=== PATIENT | female | born 1980 | race American Indian/Alaskan Native ===

== ENCOUNTER 2018-09-19 07:59 | Day surgery (SDC) | payer MEDICAID, OTHER ==
[2018-09-15 08:51] LABS: Hematocrit 28.8 % (30.3-42.9); Hemoglobin 8.7 gm/dl (10.1-14.3); Mean Corpuscular HGB Conc 30 % (30-34); Mean Corpuscular Hemoglobin 20 pg (28-32); Mean Corpuscular Volume 64 fl (79-97); Red Blood Count 4.47 M/mm3 (3.65-5.03); Red Cell Distribution Width 27.9 % (13.2-15.2)
[2018-09-15 09:40] LABS: Anisocytosis 3+; Hypochromasia 2+; Total Cells Counted 100
[2018-09-15 09:41] LABS: Ovalocytes Few; Poikilocytosis 1+
[2018-09-15 09:59] LABS: Platelet Count 164 K/mm3 (140-440); Platelet Estimate Consistent w Auto
--- NOTE | 2018-09-18 19:32 | History and Physical Report ---
History of Present Illness Date of examination: 09/07/18 Chief complaint: Excessive and frequent menstruation with irregular cycle History of present illness: Past History : 2 Term Births: 1 Living Children: 1 Spont. 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 Surgery lsc ovarian cystectomy (B) Abnormal PAP: negative Infertility: positive Infection History HIV Risk Eval: no Hx of STD: None Active Medications (reviewed today): TRANEXAMIC ACID 650 MG ORAL TABLET (TRANEXAMIC ACID) 1300 mg(2 tabs) 3 times daily (3900 mg daily) for up to 5 days during monthly menstruation CYCLOBENZAPRINE HCL TABLET (CYCLOBENZAPRINE HCL TABS) CELEBREX CAPSULE (CELECOXIB CAPS) Current Allergies (reviewed today): TRAMADOL HCL (TRAMADOL HCL) (Critical) Past Medical History: Reviewed history from 08/02/2018 and no changes required: Anemia Knee injury (07/10/2018) Blood Transfusion (2011)(2006) Endometriosis Past Surgical History: Reviewed history from 08/02/2018 and no changes required: Cholecystectomy D&C: 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 Surgery lsc ovarian cystectomy (B) Family History Summary: Reviewed history and no changes required: 09/18/2018 Uncle - Has Family History of Lung Cancer - paternal - Entered On: 08/24/2018 Other family member - Has No Family History of Biliary Tract Cancer - Entered On : 08/24/2018 Other family member - Has No Family History of Breast Cancer - Entered On: 2017 Other family member - Has No Family History of Brain Cancer - Entered On: 2017 Other family member - Has No Family History of Colon Cancer - Entered On: 2017 Other family member - Has No Family History of Spontaneous DVT-PE - Entered On: 08/24/2018 Other family member - Has No Family History of Kidney/Urinary Tract Cancer - Entered On: 08/24/2018 Other family member - Has No Family History of Ovarvian Cancer - Entered On: Other family member - Has No Family History of Pancreatic Cancer - Entered On: Other family member - Has No Family History of Stomach Cancer - Entered On: 08/24 Other family member - Has No Family History of Small Bowel Cancer - Entered On: 08/24/2018 Other family member - Has No Family History of Uterine Cancer - Entered On: 08/24 General Comments - FH: PGF Leukemia Social History: Reviewed history from 08/02/2018 and no changes required: Patient is single Smoking History: Patient has never smoked. Risk Factors: Smoked Tobacco Use: Never smoker Smokeless Tobacco Use: Never Passive smoke exposure: no Drug use: no HIV high-risk behavior: no Alcohol use: yes Exercise: no Seatbelt use: 100 % Mammogram History: Date of Last Mammogram: 11/28/2013 PAP Smear History: Date of Last PAP Smear: 08/04/2018 Previous Tobacco Use: Signed On - 08/16/2018 Smoked Tobacco Use: Never smoker Smokeless Tobacco Use: Never Passive smoke exposure: no Drug use: no HIV high-risk behavior: no Caffeine use: 0 drinks per day Previous Alcohol Use: Signed On - 08/16/2018 Alcohol use: yes Type: occ Counseled to quit/cut down alcohol use: no Exercise: no Seatbelt use: 100 % Mammogram History: Date of Last Mammogram: 11/28/2013 PAP Smear History: Date of Last PAP Smear: 08/04/2018 Review of Systems General Denies fever, chills, sweats, anorexia, fatigue, weakness, malaise, weight loss and sleep disorder. Complains of abnormal vaginal bleeding. Denies vaginal discharge, incontinence, dysuria, hematuria, urinary frequency, amenorrhea, menorrhagia, pelvic pain, genital sores, decreased libido , painful periods, painful sex, urinary urgency, hot flashes, vaginal dryness, vaginal itching and vaginal odor. Heme Denies abnormal bruising, bleeding and enlarged lymph nodes. Physical Exam Appearance: well developed, well nourished, no acute distress Other Exams Lungs: no rales, rhonchi, or wheezes Heart: S1, S2, no murmur, rub, or gallop Abdomen: soft, non-tender, no masses Skin: no ulcers, xanthomas Extremities: normal alignment, no joint enlargement, crepitus, masses or tenderness; normal tone and strength Genitourinary Exam Vulva: normal, no lesions or discharge Urethral meatus: normal size and location, no lesions or discharge Urethra: no discharge Bladder: no cystocele Vagina: normal appearance, no discharge, lesions. No evidence of cystocele or rectocele. Cervix: normal appearance, no lesions, no discharge Uterus: normal position, midline, mobile Adnexa: no masses or tenderness Impression & Recommendations: Problem # 1: Excessive and frequent menstruation with irregular cycle (ICD- 626.6) (SEV00-T03.1) Diagnosis explained to patient . Questions answered. Discussed with patient various medical and surgical therapies common for treatment: Hormonal/medical therapy,endometrial ablation or hysterectomy. She desires fertility therefore declines hormonal therapy and definitive surgical intervention at this time. She was informed her abnormal uterine bleeding may persist or recur after this procedure. Consent reviewed and signed . Possible laparoscopy or laparotomy explained to patient. The risks and alternatives for this surgery were reviewed with the patient. She was informed of possible bleeding, infection, injury to bowel, bladder, ureters or other adjacent organs. The patient was instructed/informed the following: The normal length of hospital stay for this procedure. Nothing to eat or drink after midnight the evening prior to surgery. Clear liquids the evening prior to surgery Pre-op instruction sheets given. Wound care instructions given. Infection precautions reviewed, patient to call for any signs or symptoms of infection. The usual discomforts associated with this procedure were detailed. Proper use of pain medicines was reviewed. Patient was given ample opportunity to have all her questions answered before signing informed consent. Problem # 2: Anemia secondary to blood loss (chronic) (ICD-280.0) (DLQ64-D02.0) Medications and Allergies Allergies Allergy/AdvReac Type Severity Reaction Status Date / Time tramadol Allergy Hives Verified 09/12/18 15:10 Home Medications Medication Instructions Recorded Confirmed Last Taken Type No Known Home Medications [No 09/12/18 09/12/18 Unknown History Reported Home Medications] Active Meds: Active Medications Cefazolin Sodium (Ancef/Sterile Water 2 Gm/20 Ml) 2 gm in 20 mls @ 80 mls/hr IV PREOP NR; Protocol Exam Vital Signs Temp Pulse Resp BP 98.3 F 72 18 126/80 09/15/18 08:20 09/15/18 08:20 09/15/18 08:20 09/15/18 08:20 Results - Labs 09/15/18 08:25 Assessment and Plan - Patient Problems (1) Excessive and frequent menstruation with irregular cycle Status: Acute
[~2018-09-19 07:59] MED LIST: ANCEF/STERILE WATER 2 GM/20 ML 2 GM/20 ML SYRINGE IV NR; DEMEROL IV PRN; DILAUDID IV PRN; ZOFRAN IV PRN
[2018-09-19] MEDS ORDERED: LACTATED RINGERS 1,000 ML IV SCH ×2 (08:00)
[2018-09-19] MEDS ORDERED: VERSED IV NR (08:00)
[2018-09-19] MEDS ORDERED: SUBLIMAZE ONE (10:49)
[2018-09-19] MEDS ORDERED: DIPRIVAN 10 MG/ML IV ONE ×2 (10:49→11:31)
--- NOTE | 2018-09-19 10:57 | Anesthesia Day of Surgery ---
Anesthesia Day of Surgery - Day of Surgery Patient Examined: Yes Patient H&P Reviewed: Yes Patient is NPO: Yes
--- NOTE | 2018-09-19 10:57 | Anesthesia Consultation ---
Anesthesia Consult and Med Hx Date of service: 09/19/18 - Airway Anesthetic Teeth Evaluation: Good ROM Head & Neck: Adequate Mental/Hyoid Distance: Adequate Mallampati Class: Class II Intubation Access Assessment: Probably Good - Pulmonary Exam CTA: Yes - Cardiac Exam Cardiac Exam: RRR - Pre-Operative Health Status ASA Pre-Surgery Classification: ASA1 Proposed Anesthetic Plan: General - Central Nervous System Hx Psychiatric Problems: No - Hematic Hx Anemia: Yes - Other Systems Hx Alcohol Use: Yes (Occas) Hx Cancer: No
[2018-09-19] MEDS ORDERED: XYLOCAINE MPF 2% ONE (11:24)
[2018-09-19] MEDS ORDERED: TORADOL ONE (11:24)
[2018-09-19] MEDS ORDERED: DECADRON ONE (11:24)
[2018-09-19] MEDS ORDERED: ZOFRAN ONE (11:24)
[2018-09-19] MEDS ORDERED: DILAUDID ONE (11:32)
[2018-09-19] MEDS ORDERED: NACL 0.9% IR ONE (11:45)
--- NOTE | 2018-09-19 12:05 | Operative Report ---
Operative Report Operative Report: Date: 09/19/2018 Preoperative diagnosis: 1. Excessive and frequent menstruation with irregular cycle 2. Desires fertility 3. Anemia due to chronic blood loss 4. Body mass index 33.7 Postoperative diagnosis: 1 1. Excessive and frequent menstruation with irregular cycle 2. Desires fertility 3. Anemia due to chronic blood loss 4. Body mass index 33.7 . Procedure: 1. Cervical dilation 2. Diagnostic hysteroscopy 3. Uterine curettage Surgeon: Audra Cho MD Business Continuity Specialist: [] Anesthesiologist: Dr. Mijares Anesthesia: Gen. endotracheal anesthesia EBL: Minimal Findings: Uterus was sounded to 9 cm large amount of clots thickened endometrium was noted. No other obvious abnormalities were visualized. Distention medium: Normal saline Fluid deficit: 100 mL Procedure: After risks, benefits, complications, consequences and alternatives for this procedure were explained, and patient voiced her understanding and her desire to proceed, she is taken to the OR and placed in the supine position. General anesthesia was induced. She was placed in the dorsolithotomy position. Exam under anesthesia was unremarkable. She was then prepped and draped in usual sterile fashion. Timeout was performed. A [place] catheter was introduced into the bladder with drainage of clear yellow urine. A operative speculum was introduced was introduced into the vagina. The anterior lip of the cervix was grasped with single-tooth tenaculum and the uterus was sounded to 9 cm. The cervix was progressively dilated to allow the operative hysteroscope. The above findings were noted. Uterine curettage was then performed. The hysteroscope was introduced. No abnormalities were noted. No obvious evidence of perforations were noted. The procedure was ended. The speculum and the tenaculum were removed. Hemostasis was noted. The [place] catheter was removed. No bleeding from the tenaculum site was noted. Clear yellow urine was draining into the C[place] catheter at the end of the procedure. Patient tolerated procedure well and taken to recovery room in stable condition
--- NOTE | 2018-09-19 12:11 | Discharge Summary ---
Providers - Providers Date of discharge: 09/19/18 Attending physician: CRISTA BOLES Primary care physician: DAYSI HARVEY Hospitalization Condition: Good Procedures: Diagnostic hysteroscopy with dilation curettage Hospital course: Unremarkable Disposition: DC-01 TO HOME OR SELFCARE - Discharge Diagnoses (1) Excessive and frequent menstruation with irregular cycle Status: Acute Core Measure Documentation - Palliative Care Palliative Care/ Comfort Measures: Not Applicable - Core Measures Any of the following diagnoses?: none Exam - Constitutional Vitals: Temp Pulse Resp BP Pulse Ox 97.2 F L 85 18 121/55 100 09/19/18 12:00 09/19/18 12:05 09/19/18 12:05 09/19/18 12:05 09/19/18 12:05 General appearance: Present: no acute distress - Respiratory Respiratory effort: normal - Cardiovascular Rhythm: regular Plan Activity: other (no sex) Weight Bearing Status: Full Weight Bearing Diet: regular Special Instructions: no heavy lifting (greater than 25 pounds) Follow up with: DAYSI HARVEY MD [Primary Care Provider] - 7 Days CRISTA BOLES MD [Staff Physician] - (As scheduled)
--- NOTE | 2018-09-19 12:46 | Post Anesthesia Evaluation ---
- Post Anesthesia Evaluation Patient Participated: Yes Airway Patent: Yes Stable Respiratory Function: Yes Nausea/Vomiting: No Temp > 96.8F: Yes Pain Manageable: Yes Adequeate Hydration: Yes Anesthesia Complications: No
[2018-09-19 13:17] VITALS: BP 100/60
== END 2018-09-19 14:05 | disposition home or self-care (01) ==
LOC: OR 07:59
PROVIDERS: ATTEND Obstetrics & Gynecology
DX: N92.1 Excessive and frequent menstruation with irregular cycle (principal); D50.0 Iron deficiency anemia secondary to blood loss (chronic); R93.89 Abnormal findings on diagnostic imaging of other specified body structures; G43.909 Migraine, unspecified, not intractable, without status migrainosus; E66.9 Obesity, unspecified; Z68.33 Body mass index [BMI] 33.0-33.9, adult; Z88.5 Allergy status to narcotic agent; Z72.89 Other problems related to lifestyle; Z90.49 Acquired absence of other specified parts of digestive tract; Z98.890 Other specified postprocedural states
CPT/HCPCS: 36415; 58558; 81025; 85007; 85025; 86850; 86900; 86901; 88305; A4217; J0690; J1100; J1170; J1885; J2250; J2405; J2704; J3010; J7120